=== PATIENT | female | born 1965 | race Caucasian/White ===

== ENCOUNTER 2018-09-24 11:46 | Emergency (ER) | payer OTHER ==
[~2018-09-24] VITALS: Ht 165.1 cm; Wt 113.4 kg
[~2018-09-24 11:46] MED LIST: CATAFLAM50 MG PO; COZAAR100 MG; XANAX0.25 MG
[2018-09-24] MEDS ORDERED: CLEOCIN HCL300 MG PO (12:28)
== END 2018-09-24 16:04 | disposition home or self-care (01) ==
LOC: ER 11:46
DX: L02.413 Cutaneous abscess of right upper limb (principal)

== ENCOUNTER 2019-01-02 10:27 | Outpatient (CLI) | payer OTHER ==
[~2019-01-02 10:27] MED LIST changes: +CLEOCIN HCL300 MG PO
== END 2019-01-02 10:31 | disposition home or self-care (01) ==
LOC: RAD 10:27
DX: M54.2 Cervicalgia (principal); M25.50 Pain in unspecified joint

== ENCOUNTER 2019-01-02 10:54 | Outpatient (CLI) | payer OTHER | END 2019-01-02 11:14 | disposition home or self-care (01) | LOC: LAB 10:54 | DX: M25.50 Pain in unspecified joint (principal) ==

== ENCOUNTER → 2019-04-10 11:22 | Outpatient (CLI) | payer OTHER | END | disposition home or self-care (01) | LOC: LAB 11:22 | DX: J11.1 Influenza due to unidentified influenza virus with other respiratory manifestations (principal) ==

== ENCOUNTER 2019-05-19 15:28 | Outpatient (CLI) | payer OTHER | END 2019-05-19 15:35 | disposition home or self-care (01) | LOC: LAB 15:28 | DX: N39.0 Urinary tract infection, site not specified (principal) ==

== ENCOUNTER 2020-12-16 09:32 | Outpatient (CLI) | payer OTHER | END 2020-12-16 09:36 | disposition home or self-care (01) | LOC: LAB 09:32 | DX: I11.9 Hypertensive heart disease without heart failure (principal); E03.8 Other specified hypothyroidism; N95.1 Menopausal and female climacteric states; Z12.11 Encounter for screening for malignant neoplasm of colon; E78.2 Mixed hyperlipidemia ==

== ENCOUNTER 2021-06-19 08:00 | Outpatient (CLI) | payer OTHER | END 2021-06-19 08:30 | disposition home or self-care (01) | LOC: PPH VACUNA 08:00 | PROVIDERS: ATTEND Emergency Medicine Pediatric Emergency Medicine | DX: Z23 Encounter for immunization (principal) ==

== ENCOUNTER 2021-11-15 08:00 | Outpatient (CLI) | payer OTHER | END 2021-11-15 08:30 | disposition home or self-care (01) | LOC: PPH VACUNA 08:00 | PROVIDERS: ATTEND Emergency Medicine Pediatric Emergency Medicine | DX: Z23 Encounter for immunization (principal) ==

== ENCOUNTER 2022-01-04 12:37 | Outpatient (CLI) | payer OTHER | END 2022-01-04 12:46 | disposition home or self-care (01) | LOC: RAD 12:37 | PROVIDERS: ATTEND General Practice | DX: M19.90 Unspecified osteoarthritis, unspecified site (principal) ==

== ENCOUNTER 2022-01-21 07:34 | Emergency (ER) | payer OTHER ==
[~2022-01-21] VITALS: Ht 167.6 cm; Wt 104.3 kg
[2022-01-21] MEDS ORDERED: ATACAND32 MG PO (07:44)
[2022-01-21] MEDS ORDERED: LEXAPRO20 MG PO (07:45)
== END 2022-01-21 13:52 | disposition home or self-care (01) ==
LOC: ER 07:34
DX: B34.9 Viral infection, unspecified (principal); R53.81 Other malaise; I10 Essential (primary) hypertension; Z88.5 Allergy status to narcotic agent; Z20.822 Contact with and (suspected) exposure to COVID-19

== ENCOUNTER → 2022-04-02 | Emergency (ER) | payer OTHER ==
[~2022-04-02] VITALS: Ht 152.4 cm; Wt 117.9 kg
[~2022-04-02] MED LIST changes: +ATACAND32 MG PO; +LEXAPRO20 MG PO; +TRAZODONE HCL100 MG PO; +VISTARIL25 MG PO
== END | disposition left against medical advice (07) ==
LOC: ER 19:19
DX: Z53.21 Procedure and treatment not carried out due to patient leaving prior to being seen by health care provider (principal)

== ENCOUNTER 2022-04-03 07:11 | Emergency (ER) | payer OTHER ==
[~2022-04-03] VITALS: Ht 165.1 cm; Wt 117.9 kg
== END 2022-04-03 11:37 | disposition home or self-care (01) ==
LOC: ER 07:11
DX: U07.1 COVID-19 (principal); I10 Essential (primary) hypertension; Z88.8 Allergy status to other drugs, medicaments and biological substances

== ENCOUNTER 2022-04-03 12:00 | Outpatient (CLI) | payer OTHER | END 2022-04-03 12:30 | disposition home or self-care (01) | LOC: ASH CLINIC 12:00 | PROVIDERS: ATTEND General Practice | DX: U07.1 COVID-19 (principal) ==

== ENCOUNTER 2022-10-12 07:34 | Outpatient (CLI) | payer OTHER | END 2022-10-12 07:35 | disposition home or self-care (01) | LOC: RAD 07:34 → LAB 07:34 | PROVIDERS: ATTEND General Practice | DX: M54.50 Low back pain, unspecified (principal); M54.2 Cervicalgia; M54.6 Pain in thoracic spine; M25.511 Pain in right shoulder ==

== ENCOUNTER 2025-07-23 07:26 | Outpatient (CLI) | payer OTHER ==
[2025-07-23 08:09] LABS: BASO % 0.2 % (0.1-1.2); EOS # 0.13 (0.04-0.54); EOS % 1.5 % (0.7-7.0); LYMPH # 2.39 (1.18-3.74); LYMPH % 28.3 % (19.3-53.1); MEAN PLATELET VOLUME 12.50 fl (9.4-12.4); MONO # 0.47 (0.24-0.82); MONO % 5.6 % (4.7-12.5); NEUT # 5.41 (1.56-6.13); NEUT % 63.9 % (34.0-71.1); RED CELL DISTRIBUTION WIDTH 13.3 % (11.6-14.4); URINE APPEARANCE Clear; URINE BILIRRUBIN Negative (NEGATIVE); URINE BLOOD Negative; URINE COLOR Yellow; URINE GLUCOSE Negative (NEGATIVE); URINE KETONE Negative (NEGATIVE); URINE LEUKOCYTE Trace; URINE NITRATE Negative; URINE PROTEIN Negative (NEGATIVE); URINE UROBILINOGEN 1.0 E.U./dl
[2025-07-23 08:13] LABS: URINE BACTERIA 2145.6 uL (0.0-1933); URINE EPITHELIAL CELLS 21.3 uL (0.0-38.8); URINE RBC 2.6 uL (0.0-20.8); URINE WBC 24.2 uL (0.0-23.2)
[2025-07-23 09:11] LABS: URINE CAST 0.00 uL (0.0-1.40)
[2025-07-23 09:56] LABS: ALT/SGPT 27.0 U/L (12-78); AST/SGOT 16.0 U/L (15-37); BILIRUBIN TOTAL 0.48 mg/dL (0.3-1.2); BUN CREA RATIO 13.0 (7.0-25.0); CHOL HDL RATIO 4.9 (0-5.0); CREATININE SERUM 0.75 mg/dL (0.55-1.02); GFR 79.37; GLOBULINA 3.6 G/DL (2.4-3.5); HDL 42.0 mg/dl (40-60); LDL 128.0 mg/dl (0-130); VLDL 36.0 (0-39)
[2025-07-23 09:59] LABS: GLUCOSE FASTING 252.0 mg/dL (65-100); OSMOLALITY SERUM 285.0 MOSM/KG (275-295); TSH 4.98 uIU/mL (0.358-3.74)
== END 2025-07-23 07:31 | disposition home or self-care (01) ==
LOC: LAB 07:26
PROVIDERS: ATTEND Internal Medicine Cardiovascular Disease
DX: D64.9 Anemia, unspecified (principal); N39.0 Urinary tract infection, site not specified; R10.9 Unspecified abdominal pain; E03.9 Hypothyroidism, unspecified; E55.9 Vitamin D deficiency, unspecified; E11.9 Type 2 diabetes mellitus without complications; E78.2 Mixed hyperlipidemia